=== PATIENT | female | born 1950 | race Hispanic/Latino ===

== ENCOUNTER → 2017-12-08 | Outpatient (CLI) | payer MEDICARE ==
[~2017-12-08] MED LIST: ADAL40PE3 SQ; ASPI-1181 PO; ATOR40TA71 PO; BENZONATE PO; CLON1TAB5 SL; CLOP75TA32 PO; DOXEPIN PO; FLUO20TA29 PO; FLUTICASONE PROP NASAL; FURO20TA4 PO; GABA-531 PO; GLUCOSE TAB CHEW; INSU100I21 SQ; INSU100I3 SQ; IRON PO; ISOS30TA6 PO; LOSA50TA37 PO; METF500T6 PO; METO-408 PO; NITR0.4T50 SL; POTA10CA44 PO; PROVENTIL HFA PUFF; RANO500T3 PO; SUVO10TA PO
== END | disposition home or self-care (01) ==
LOC: SHCH 13:37
PROVIDERS: ATTEND Internal Medicine Cardiovascular Disease
DX: I25.119 Atherosclerotic heart disease of native coronary artery with unspecified angina pectoris (principal); I34.0 Nonrheumatic mitral (valve) insufficiency
CPT/HCPCS: 93306

== ENCOUNTER → 2017-12-13 | Outpatient (CLI) | payer MEDICARE ==
[~2017-12-13] MED LIST changes: +REGADENOSON 0.4 MG/5 ML PF SYG IVP SCH
== END | disposition home or self-care (01) ==
LOC: SHCH 08:16
PROVIDERS: ATTEND Internal Medicine Cardiovascular Disease
DX: I25.119 Atherosclerotic heart disease of native coronary artery with unspecified angina pectoris (principal)
CPT/HCPCS: 78452; 93017; 96374; A9500 ×2; J2785

== ENCOUNTER 2018-01-25 06:00 | Observation (INO) | payer MEDICARE ==
[2018-01-21 10:15] VITALS: BP 162/87
[2018-01-21 10:34] LABS: BASOPHILS % (AUTO) 1.3 % (0.0-5.0); EOSINOPHILS % (AUTO) 1.1 % (0.0-8.0); HEMATOCRIT 34.9 % (36-48); LYMPHOCYTES % (AUTO) 35.2 % (21.0-51.0); MEAN CORPUSCULAR HEMOGLOBIN 29.7 pg (27.0-33.0); MEAN CORPUSCULAR HGB CONC 33.9 g/dL (32.0-36.0); MEAN CORPUSCULAR VOLUME 87.5 fL (79-99); MONOCYTES % (AUTO) 6.7 % (3.0-13.0); NEUTROPHILS % (AUTO) 55.7 % (40.0-77.0); PLATELET COUNT (AUTO) 407 K/uL (130-400); RED BLOOD CELL COUNT(AUTO) 3.99 MIL/uL (4.00-5.50); RED CELL DISTRIBUTION WIDTH 15.5 % (11.0-15.5); WHITE BLOOD COUNT (AUTO) 5.7 K/uL (4.8-10.8)
[2018-01-21 10:42] LABS: APPEARANCE,URINE Cloudy (CLEAR); BILIRUBIN,URINE Negative (NEGATIVE); COLOR,URINE Yellow (YELLOW); GLUCOSE, URINE (UA) Negative (NEGATIVE); KETONES,URINE Negative (NEGATIVE); LEUKOCYTE ESTERASE ,URINE Small (NEGATIVE); NITRATE,URINE Negative (NEGATIVE); OCCULT BLOOD,URINE Negative (NEGATIVE); PROTEIN,URINE Negative (NEGATIVE)
[2018-01-21 10:43] LABS: CREATININE 0.9 mg/dL (0.5-1.5); POTASSIUM 4.4 mmol/L (3.5-5.1)
[2018-01-21 10:53] LABS: INR 0.93 (0.85-1.15); PARTIAL THROMBOPLASTIN TIME 27.1 SEC (26.3-35.5); PROTHROMBIN TIME 9.8 SEC (9.6-11.6)
[2018-01-21 10:54] LABS: RBC,URINE 0-1 /HPF (0-1)
[2018-01-21 10:55] LABS: BACTERIA,URINE Few /HPF (None Seen); WBC,URINE 0-1 /HPF (0-1)
[2018-01-25] VITALS (11 sets, daily range): BP systolic 109–161; BP diastolic 64–97
[~2018-01-25] VITALS: Ht 162.6 cm; Wt 103.8 kg
[~2018-01-25 06:00] MED LIST changes: -REGADENOSON 0.4 MG/5 ML PF SYG IVP SCH; +SODIUM CHLORIDE 0.9% 500ML 500 ML IV SCH
[2018-01-25] MEDS ORDERED: SODIUM CHLORIDE 0.9% 1000ML 1,000 ML IV ONE (07:52)
[2018-01-25] MEDS ORDERED: HEPARIN SODIUM 1000UNIT/ML 10ML VIAL ONE (10:44)
[2018-01-25] MEDS ORDERED: IOHEXOL-350 50ML VIAL IV ONE ×2 (10:44→12:33)
[2018-01-25] MEDS ORDERED: NITROGLYCERIN 5 MG/ML 10 ML VIAL IV ONE (10:44)
[2018-01-25] MEDS ORDERED: IOHEXOL 350 MG/ML 100ML INFUS..BTL IV ONE ×2 (10:44→11:49)
[2018-01-25] MEDS ORDERED: LIDOCAINE HCL-MPF 2% 5ML VIAL ONE (10:46)
[2018-01-25] MEDS ORDERED: MIDAZOLAM HCL 1 MG/ML 2ML VIAL ONE ×3 (11:06→11:56)
[2018-01-25] MEDS ORDERED: MEPERIDINE-PF 25 MG/ML SYG ONE ×3 (11:06→11:56)
[2018-01-25] MEDS ORDERED: ALBUTEROL SULFATE 0.083% 2.5 MG/3 ML INH IH SCH (12:00)
[2018-01-25] MEDS: SODIUM CHLORIDE 0.9% 1000ML 1,000 ML IV SCH ×2 (12:58→22:58)
[2018-01-25] MEDS ORDERED: NITROGLYCERIN 0.4 MG SL TAB SL PRN (13:00)
[2018-01-25] MEDS ORDERED: BENZONATATE 100 MG CAPSULE PO PRN (13:00)
[2018-01-25] MEDS ORDERED: DEXTROSE 50%-WATER 50 ML DISP.SYRIN IV PRN (13:00)
[2018-01-25] MEDS ORDERED: CLOPIDOGREL BISULFATE 75 MG TAB ONE (13:08)
[2018-01-25] MEDS ORDERED: ASPIRIN 81MG TAB.CHEW ONE (13:08)
[2018-01-25] MEDS: ACETAMINOPHEN-CODEINE 300/30MG TAB PO PRN (15:35)
[2018-01-25] MEDS ORDERED: ATORVASTATIN CALCIUM 40 MG TABLET PO SCH (21:00)
[2018-01-25] MEDS ORDERED: SUVOREXANT 10 MG PO SCH (21:00)
[2018-01-25] MEDS: INSULIN HUMULIN R 100 UNIT/ML 3ML SQ SCH (21:00)
[2018-01-25] MEDS ORDERED: INSULIN GLARGINE 100 UNITS/ML 10 ML VIAL SQ SCH (21:00)
[2018-01-25] MEDS: GABAPENTIN 300 MG CAPSULE PO SCH (21:21)
[2018-01-25] MEDS: METOPROLOL TARTRATE 25 MG TAB PO SCH (21:22)
[2018-01-25] MEDS: CLONAZEPAM 1 MG TABLET PO PRN (22:24)
[2018-01-26] MEDS: ACETAMINOPHEN-CODEINE 300/30MG TAB PO PRN ×2 (01:15→10:00)
[2018-01-26 03:57] VITALS: BP 153/87
[2018-01-26 04:28] LABS: HEMATOCRIT 32.9 % (36-48); MEAN CORPUSCULAR HEMOGLOBIN 31.1 pg (27.0-33.0); MEAN CORPUSCULAR HGB CONC 35.2 g/dL (32.0-36.0); MEAN CORPUSCULAR VOLUME 88.4 fL (79-99); PLATELET COUNT (AUTO) 353 K/uL (130-400); RED BLOOD CELL COUNT(AUTO) 3.72 MIL/uL (4.00-5.50); RED CELL DISTRIBUTION WIDTH 15.5 % (11.0-15.5); WHITE BLOOD COUNT (AUTO) 7.7 K/uL (4.8-10.8)
[2018-01-26 05:10] LABS: CREATININE 0.9 mg/dL (0.5-1.5); POTASSIUM 4.7 mmol/L (3.5-5.1)
[2018-01-26 07:00] VITALS: BP 175/71
[2018-01-26] MEDS: INSULIN LISPRO 100 UNIT/ML 3ML SQ SCH ×2 (07:30→11:30)
[2018-01-26] MEDS: INSULIN HUMULIN R 100 UNIT/ML 3ML SQ SCH ×2 (07:30→11:30)
[2018-01-26] MEDS ORDERED: ASPIRIN 81 MG EC TAB PO SCH (09:00)
[2018-01-26] MEDS ORDERED: FLUTICASONE PROPIONATE 50MCG/SPRAY 16 GM BOTTLE EN SCH (09:00)
[2018-01-26] MEDS ORDERED: RANOLAZINE 500 MG TAB.SR.12H PO SCH (09:00)
[2018-01-26] MEDS ORDERED: ISOSORBIDE MONO 30MG TAB SR PO SCH (09:00)
[2018-01-26] MEDS ORDERED: POTASSIUM CHLORIDE 10 MEQ/TAB.SA PO SCH (09:00)
[2018-01-26] MEDS ORDERED: FUROSEMIDE 20 MG TABLET PO SCH (09:00)
[2018-01-26] MEDS ORDERED: FLUOXETINE HCL 20 MG CAPSULE PO SCH (09:00)
[2018-01-26] MEDS ORDERED: CLOPIDOGREL BISULFATE 75 MG TAB PO SCH (09:00)
[2018-01-26] MEDS ORDERED: LOSARTAN 50 MG TABLET PO SCH (09:00)
[2018-01-26] MEDS: METOPROLOL TARTRATE 25 MG TAB PO SCH (09:50)
[2018-01-26] MEDS: GABAPENTIN 300 MG CAPSULE PO SCH (09:52)
[2018-01-26 11:00] VITALS: BP 119/57
[2018-01-26] MEDS: CLONAZEPAM 1 MG TABLET PO PRN (12:17)
[2018-02-08] MEDS ORDERED: ADALIMUMAB 40 MG SQ SCH (09:00)
== END 2018-01-26 13:10 | disposition home or self-care (01) ==
LOC: DAH 06:00 → DAHIP 06:01 → DAH 06:01 → 2BH 13:30 → 2AH 20:20
PROVIDERS: ADMIT Internal Medicine Cardiovascular Disease; ATTEND Internal Medicine Cardiovascular Disease
DX: I25.798 Atherosclerosis of other coronary artery bypass graft(s) with other forms of angina pectoris (principal); Z79.899 Other long term (current) drug therapy; Z95.1 Presence of aortocoronary bypass graft; Z90.49 Acquired absence of other specified parts of digestive tract; Z98.890 Other specified postprocedural states; Z98.84 Bariatric surgery status; I10 Essential (primary) hypertension; E78.5 Hyperlipidemia, unspecified; E11.9 Type 2 diabetes mellitus without complications; Z86.73 Personal history of transient ischemic attack (TIA), and cerebral infarction without residual deficits; F32.9 Major depressive disorder, single episode, unspecified; G47.33 Obstructive sleep apnea (adult) (pediatric); Z82.49 Family history of ischemic heart disease and other diseases of the circulatory system; L40.9 Psoriasis, unspecified; Z68.41 Body mass index [BMI] 40.0-44.9, adult
CPT/HCPCS: 36415 ×3; 71045; 80048 ×2; 80061; 81001; 82948 ×7; 85025; 85027; 85347; 85610; 85730; 92920; 93005; 93459; A4606; C1725 ×2; C1760; C1769 ×2; C1874 ×2; C1887 ×2; C1894 ×2; C9604; G0378 ×31; J1644 ×3; J1815; J2175 ×3; J2250 ×3; J3490 ×2; J7030; Q9965 ×2; Q9967 ×4; 99156; 99157

== ENCOUNTER → 2018-08-22 | Outpatient (CLI) | payer MEDICARE ==
[~2018-08-22] MED LIST changes: -BENZONATE PO; -CLON1TAB5 SL; -DOXEPIN PO; -FURO20TA4 PO; -GABA-531 PO; -GLUCOSE TAB CHEW; -INSU100I3 SQ; -ISOS30TA6 PO; -LOSA50TA37 PO; +METF-444 PO; -METF500T6 PO; +METH750T3 PO; -METO-408 PO; +OMEP20CA10 PO; -POTA10CA44 PO; -RANO500T3 PO; +REGADENOSON 0.4 MG/5 ML PF SYG IVP SCH; -SODIUM CHLORIDE 0.9% 500ML 500 ML IV SCH; -SUVO10TA PO
== END | disposition home or self-care (01) ==
LOC: SHCH 07:44
PROVIDERS: ATTEND Internal Medicine Cardiovascular Disease
DX: I25.709 Atherosclerosis of coronary artery bypass graft(s), unspecified, with unspecified angina pectoris (principal)
CPT/HCPCS: 78452; 93017; 96374; A9500 ×2; J2785

== ENCOUNTER 2018-09-15 05:46 | Day surgery (SDC) | payer MEDICARE ==
[2018-09-13 13:08] LABS: APPEARANCE,URINE Turbid (CLEAR); BASOPHILS % (AUTO) 0.7 % (0.0-5.0); BILIRUBIN,URINE Small (NEGATIVE); COLOR,URINE Dark Yellow (YELLOW); EOSINOPHILS % (AUTO) 1.3 % (0.0-8.0); GLUCOSE, URINE (UA) Negative (NEGATIVE); HEMATOCRIT 38.5 % (36-48); KETONES,URINE Trace mg/dL (NEGATIVE); LEUKOCYTE ESTERASE ,URINE Moderate (NEGATIVE); LYMPHOCYTES % (AUTO) 42.4 % (21.0-51.0); MEAN CORPUSCULAR HEMOGLOBIN 30.3 pg (27.0-33.0); MEAN CORPUSCULAR HGB CONC 33.1 g/dL (32.0-36.0); MEAN CORPUSCULAR VOLUME 91.7 fL (79-99); MONOCYTES % (AUTO) 8.7 % (3.0-13.0); NEUTROPHILS % (AUTO) 46.9 % (40.0-77.0); NITRATE,URINE Negative (NEGATIVE); OCCULT BLOOD,URINE Small (NEGATIVE); PH,URINE 5.5 (5.0-8.0); PLATELET COUNT (AUTO) 281 K/uL (130-400); PROTEIN,URINE Trace (NEGATIVE); RED BLOOD CELL COUNT(AUTO) 4.19 MIL/uL (4.00-5.50); RED CELL DISTRIBUTION WIDTH 15.7 % (11.0-15.5); WHITE BLOOD COUNT (AUTO) 5.4 K/uL (4.8-10.8)
[2018-09-13 13:13] VITALS: BP 166/68
[2018-09-13 13:14] LABS: BACTERIA,URINE Few /HPF (None Seen); MUCUS,URINE Rare LPF (None Seen); SQUAMOUS EPITHELIAL CELL,UR Moderate /HPF (0-2)
[2018-09-13 13:16] LABS: CALCIUM OXALATE CRYSTALS,UR Many /LPF (None Seen)
[2018-09-13 13:19] LABS: CREATININE 0.9 mg/dL (0.5-1.5); POTASSIUM 4.1 mmol/L (3.5-5.1)
[2018-09-13 13:25] LABS: INR 0.94 (0.85-1.15); PARTIAL THROMBOPLASTIN TIME 29.6 SEC (26.3-35.5); PROTHROMBIN TIME 9.9 SEC (9.6-11.6)
[~2018-09-15] VITALS: Ht 161.3 cm; Wt 105.5 kg
[~2018-09-15 05:46] MED LIST changes: +CALC-190 PO; +CHOL200074 PO; +CLON1TAB12 PO; -FLUO20TA29 PO; -FLUTICASONE PROP NASAL; +FURO20TA4 PO; -INSU100I21 SQ; +LOSA50TA64 PO; +MACR100 PO; -METH750T3 PO; +METO-408 PO; +MULT-492 PO; -NITR0.4T50 SL; -OMEP20CA10 PO; +PANT40TA PO; +POTA-9 PO; -PROVENTIL HFA PUFF; -REGADENOSON 0.4 MG/5 ML PF SYG IVP SCH; +SUVO10TA PO; +[UNRECOGNIZED DRUG - OTHER] PO
[2018-09-15 06:09] VITALS: BP 144/77
[2018-09-15] MEDS ORDERED: SODIUM CHLORIDE 0.9% 1000ML 1,000 ML IV ONE (06:20)
--- NOTE | 2018-09-15 07:00 | NUR ---
IV in attempt. As I was starting IV, Dr. Goff came in to see pt. Dr. Goff said to discontinue IV process, as procedure was canceled due to evidence of UTI. Pt instructed to follow-up with her PCP, to monitor for signs of UTI, and to inform them of the situation, as urine sample still showing evidence of UTI despite antibiotics. Pt instructed to follow-up with culture results as well.
[2018-09-15] MEDS ORDERED: MEPERIDINE-PF 25 MG/ML SYG ONE (07:13)
[2018-09-15] MEDS ORDERED: IOHEXOL 350 MG/ML 100ML INFUS..BTL IV ONE (07:13)
[2018-09-15] MEDS ORDERED: NITROGLYCERIN 5 MG/ML 10 ML VIAL IV ONE (07:13)
[2018-09-15] MEDS ORDERED: HEPARIN SODIUM 1000UNIT/ML 10ML VIAL ONE (07:13)
[2018-09-15] MEDS ORDERED: SODIUM BICARB 50MEQ 50ML VIAL ONE (07:13)
[2018-09-15] MEDS ORDERED: LIDOCAINE HCL 2% 20ML ONE (07:13)
[2018-09-15] MEDS ORDERED: MIDAZOLAM HCL 1 MG/ML 2ML VIAL ONE (07:13)
--- NOTE | 2018-09-15 07:25 | NUR ---
Pt dressed and ready to go home. Pt informed that she should get a call to reschedule procedure and to call Dr. Goff's office if she does not hear from anyone.
[2018-09-15] MEDS ORDERED: SODIUM CHLORIDE 0.9% 1000ML 1,000 ML IV SCH (08:00)
== END 2018-09-15 07:25 | disposition home or self-care (01) ==
LOC: DAH 05:46
PROVIDERS: ATTEND Internal Medicine Cardiovascular Disease
DX: I25.10 Atherosclerotic heart disease of native coronary artery without angina pectoris (principal); Z53.9 Procedure and treatment not carried out, unspecified reason
CPT/HCPCS: 36415; 71045; 80048; 81001; 82948; 85025; 85610; 85730; 93005; A4606; J7030; J1644; J2175; J2250; J3490; Q9967

== ENCOUNTER 2018-11-08 07:12 | Outpatient (CLI) | payer MEDICARE ==
[2018-11-04 10:41] VITALS: BP 161/80
[2018-11-04 10:50] LABS: BASOPHILS % (AUTO) 1.1 % (0.0-5.0); EOSINOPHILS % (AUTO) 0.9 % (0.0-8.0); HEMATOCRIT 37.1 % (36-48); LYMPHOCYTES % (AUTO) 41.7 % (21.0-51.0); MEAN CORPUSCULAR HEMOGLOBIN 31.2 pg (27.0-33.0); MEAN CORPUSCULAR HGB CONC 33.6 g/dL (32.0-36.0); MEAN CORPUSCULAR VOLUME 92.7 fL (79-99); MONOCYTES % (AUTO) 8.5 % (3.0-13.0); NEUTROPHILS % (AUTO) 47.8 % (40.0-77.0); PLATELET COUNT (AUTO) 304 K/uL (130-400); RED CELL DISTRIBUTION WIDTH 13.9 % (11.0-15.5); WHITE BLOOD COUNT (AUTO) 6.5 K/uL (4.8-10.8)
[2018-11-04 10:52] LABS: APPEARANCE,URINE Clear (CLEAR); BILIRUBIN,URINE Negative (NEGATIVE); COLOR,URINE Yellow (YELLOW); GLUCOSE, URINE (UA) 250 mg/dL (NEGATIVE); KETONES,URINE Negative (NEGATIVE); LEUKOCYTE ESTERASE ,URINE Small (NEGATIVE); NITRATE,URINE Negative (NEGATIVE); OCCULT BLOOD,URINE Small (NEGATIVE); PROTEIN,URINE Negative (NEGATIVE)
[2018-11-04 10:55] LABS: BACTERIA,URINE Rare /HPF (None Seen); RBC,URINE 0-1 /HPF (0-1); SQUAMOUS EPITHELIAL CELL,UR Moderate /HPF (0-2)
[2018-11-04 11:00] LABS: CREATININE 0.9 mg/dL (0.5-1.5); POTASSIUM 4.6 mmol/L (3.5-5.1)
[2018-11-04 11:07] LABS: INR 0.95 (0.85-1.15); PARTIAL THROMBOPLASTIN TIME 27.8 SEC (26.3-35.5)
--- NOTE | 2018-11-07 13:35 | NUR ---
LABS ABNORMAL UA REPORTED TO TONA CRAIN, NO FURTHER ORDERS GIVEN
[~2018-11-08] VITALS: Ht 162.6 cm; Wt 106.0 kg
[~2018-11-08 07:12] MED LIST changes: +ACET-2247 PO; +ALBU6.7H IH; +FLUO20TA29 PO; +FLUT16H NS; +GABA-531 PO; +HYDR-4060 PO; +LORA-705 PO; -LOSA50TA64 PO; -MACR100 PO; -POTA-9 PO
== END 2018-11-08 09:00 ==
LOC: DAH 07:12
PROVIDERS: ATTEND Internal Medicine Cardiovascular Disease
DX: I25.10 Atherosclerotic heart disease of native coronary artery without angina pectoris (principal); Z53.9 Procedure and treatment not carried out, unspecified reason
CPT/HCPCS: 36415; 71045; 80048; 81001; 85025; 85610; 85730; 93005

== ENCOUNTER 2019-03-16 11:52 | Emergency (ER) | payer MEDICARE ==
[2019-03-16] MEDS ORDERED: HYDROCODONE/ACETAMINOPHEN 10/325 MG TAB ONE (12:25)
== END 2019-03-16 14:48 | disposition home or self-care (01) ==
LOC: EDH 11:52
DX: S80.02XA Contusion of left knee, initial encounter (principal); S09.8XXA Other specified injuries of head, initial encounter; I25.10 Atherosclerotic heart disease of native coronary artery without angina pectoris; I11.0 Hypertensive heart disease with heart failure; I50.9 Heart failure, unspecified; E78.5 Hyperlipidemia, unspecified; E11.9 Type 2 diabetes mellitus without complications; Z88.1 Allergy status to other antibiotic agents; Z88.2 Allergy status to sulfonamides; Z88.7 Allergy status to serum and vaccine; Z91.012 Allergy to eggs; W18.39XA Other fall on same level, initial encounter; Y93.89 Activity, other specified; Y92.89 Other specified places as the place of occurrence of the external cause; Y99.8 Other external cause status
CPT/HCPCS: 70450; 73552

== ENCOUNTER → 2019-08-21 | Outpatient (CLI) | payer OTHER, MEDICARE ==
[~2019-08-21] VITALS: Ht 157.5 cm; Wt 111.1 kg
[~2019-08-21] MED LIST changes: -ALBU6.7H IH; +ALBU6.7H9 IH; +REGADENOSON 0.4 MG/5 ML PF SYG IVP SCH
== END | disposition home or self-care (01) ==
LOC: SHCH 08:08
PROVIDERS: ATTEND Internal Medicine Cardiovascular Disease
DX: I10 Essential (primary) hypertension (principal); R06.00 Dyspnea, unspecified; R07.89 Other chest pain; R51 Headache
CPT/HCPCS: 78452; 93017; 96374; A9500 ×2; J2785

== ENCOUNTER 2019-08-30 15:42 | Emergency (ER) | payer OTHER, MEDICARE ==
[~2019-08-30 15:42] MED LIST changes: +ATOR20TA65 PO; +FLUO40CA49 PO; +LOSA50TA64 PO; +METH750T3 PO; +MONT10TA24 PO; +POTA-9 PO; -REGADENOSON 0.4 MG/5 ML PF SYG IVP SCH; +TYL4 PO; +biotin PO
== END 2019-08-30 17:33 | disposition home or self-care (01) ==
LOC: EDH 15:42
DX: S90.121A Contusion of right lesser toe(s) without damage to nail, initial encounter (principal); I25.10 Atherosclerotic heart disease of native coronary artery without angina pectoris; E11.9 Type 2 diabetes mellitus without complications; E78.5 Hyperlipidemia, unspecified; I10 Essential (primary) hypertension; I50.9 Heart failure, unspecified; Z87.891 Personal history of nicotine dependence; Z88.2 Allergy status to sulfonamides; Z91.012 Allergy to eggs; Z88.7 Allergy status to serum and vaccine; X58.XXXA Exposure to other specified factors, initial encounter; Y93.89 Activity, other specified; Y92.89 Other specified places as the place of occurrence of the external cause; Y99.8 Other external cause status
CPT/HCPCS: 73630

== ENCOUNTER 2019-09-01 07:40 | Day surgery (SDC) | payer OTHER, MEDICARE ==
[2019-08-30 13:44] LABS: EOSINOPHILS % (AUTO) 1.3 % (0.0-8.0); HEMATOCRIT 38.1 % (36-48); LYMPHOCYTES % (AUTO) 29.8 % (21.0-51.0); MEAN CORPUSCULAR HEMOGLOBIN 29.8 pg (27.0-33.0); MEAN CORPUSCULAR VOLUME 93.2 fL (79-99); MONOCYTES % (AUTO) 9.5 % (3.0-13.0); NEUTROPHILS % (AUTO) 58.1 % (40.0-77.0); PLATELET COUNT (AUTO) 292 K/uL (130-400); RED BLOOD CELL COUNT(AUTO) 4.09 MIL/uL (4.00-5.50); RED CELL DISTRIBUTION WIDTH 13.6 % (11.0-15.5); WHITE BLOOD COUNT (AUTO) 6.2 K/uL (4.8-10.8)
[2019-08-30 13:48] LABS: APPEARANCE,URINE Cloudy (CLEAR); BILIRUBIN,URINE Negative (NEGATIVE); COLOR,URINE Yellow (YELLOW); GLUCOSE, URINE (UA) TRACE mg/dL (NEGATIVE); KETONES,URINE Negative (NEGATIVE); LEUKOCYTE ESTERASE ,URINE Moderate (NEGATIVE); NITRATE,URINE Positive (NEGATIVE); OCCULT BLOOD,URINE Moderate (NEGATIVE); PH,URINE 5.5 (5.0-8.0); PROTEIN,URINE Negative (NEGATIVE)
[2019-08-30 13:50] LABS: CREATININE 0.8 mg/dL (0.5-1.5); POTASSIUM 3.8 mmol/L (3.5-5.1)
[2019-08-30 13:54] LABS: INR 0.96 (0.85-1.15); PROTHROMBIN TIME 10.1 SEC (9.6-11.6)
[2019-08-30 13:58] LABS: BACTERIA,URINE Many /HPF (None Seen); RBC,URINE 0-1 /HPF (0-1)
[2019-08-30 13:59] LABS: SQUAMOUS EPITHELIAL CELL,UR Few /HPF (0-2)
[2019-08-30 14:12] VITALS: BP 187/90
--- NOTE | 2019-08-31 16:23 | NUR ---
UA INFORMED PARAS KENDALL OF ABNORMAL UA. ORDERS RECEIVED TO REPEAT UA IN AM AND SEND FOR CULTURE.
[~2019-09-01] VITALS: Ht 160 cm; Wt 109.3 kg
[2019-09-01] VITALS (10 sets, daily range): BP systolic 147–193; BP diastolic 54–86
[~2019-09-01 07:40] MED LIST changes: -ACET-2247 PO; -ADAL40PE3 SQ; -ATOR40TA71 PO; -CLON1TAB12 PO; -FLUO20TA29 PO; -FLUT16H NS; -HYDR-4060 PO; -IRON PO; -LORA-705 PO; -MONT10TA24 PO; +MONT10TA26 PO; -MULT-492 PO
--- NOTE | 2019-09-01 07:55 | NUR ---
PROCEDURE PT HERE FOR PROCEDURE. DENIES ANY SOB, PAIN. PT STATES SHE CANT URINATE FOR UA. INSTRUCTED TO TRY.
[2019-09-01] MEDS ORDERED: SODIUM CHLORIDE 0.9% 1000ML 1,000 ML IV SCH ×2 (08:00→16:18)
--- NOTE | 2019-09-01 09:45 | NUR ---
UA INFORMED DR. BRANCH OF STATING CANT URINATE FOR UA. ORDERS RECEIVED TO HAVE PT TRY TO COLLECT URINE.
[2019-09-01 10:48] LABS: APPEARANCE,URINE Cloudy (CLEAR); BILIRUBIN,URINE Negative (NEGATIVE); COLOR,URINE Yellow (YELLOW); GLUCOSE, URINE (UA) Negative (NEGATIVE); KETONES,URINE Negative (NEGATIVE); LEUKOCYTE ESTERASE ,URINE Small (NEGATIVE); NITRATE,URINE Negative (NEGATIVE); OCCULT BLOOD,URINE Moderate (NEGATIVE); PROTEIN,URINE Negative (NEGATIVE)
[2019-09-01 11:30] LABS: BACTERIA,URINE Many /HPF (None Seen)
--- NOTE | 2019-09-01 13:30 | NUR ---
REPORT REPORT RECEIVED FROM THERESE HOLLIS RN. PT IN BED, NOT ON ANY APPARENT DISTRESS. SON AT BEDSIDE.
[2019-09-01] MEDS ORDERED: HEPARIN SODIUM 1000UNIT/ML 10ML VIAL ONE ×2 (14:55→15:15)
[2019-09-01] MEDS ORDERED: SODIUM BICARB 50MEQ 50ML VIAL ONE (14:55)
[2019-09-01] MEDS ORDERED: IOHEXOL-350 50ML VIAL IV ONE (14:55)
[2019-09-01] MEDS ORDERED: LIDOCAINE HCL 2% 20ML ONE (14:55)
[2019-09-01] MEDS ORDERED: IOHEXOL 350 MG/ML 100ML INFUS..BTL IV ONE (14:55)
[2019-09-01] MEDS ORDERED: NICARDIPINE HCL 25 MG/10 ML ML IV ONE (14:59)
[2019-09-01] MEDS ORDERED: NITROGLYCERIN 1 MG/VIAL VIAL IV ONE (14:59)
[2019-09-01] MEDS ORDERED: MIDAZOLAM HCL 1 MG/ML 2ML VIAL ONE ×3 (15:11→15:22)
[2019-09-01] MEDS ORDERED: MEPERIDINE-PF 25 MG/ML SYG ONE ×3 (15:11→15:21)
[2019-09-01] MEDS ORDERED: DEXTROSE 50%-WATER 50 ML DISP.SYRIN IV PRN (16:30)
[2019-09-01] MEDS ORDERED: GLUCAGON 1MG KIT 1 MG ML IM PRN (16:30)
[2019-09-01] MEDS ORDERED: INSULIN HUMULIN R 100 UNIT/ML 3ML SQ SCH (16:30)
[2019-09-01] MEDS ORDERED: HYDRALAZINE HCL 20 MG/ML VIAL ONE (17:35)
== END 2019-09-01 21:20 | disposition home or self-care (01) ==
LOC: DAH 07:40
PROVIDERS: ATTEND Internal Medicine Cardiovascular Disease
DX: I25.10 Atherosclerotic heart disease of native coronary artery without angina pectoris (principal); I10 Essential (primary) hypertension; E78.5 Hyperlipidemia, unspecified; E11.40 Type 2 diabetes mellitus with diabetic neuropathy, unspecified; F32.9 Major depressive disorder, single episode, unspecified; G47.33 Obstructive sleep apnea (adult) (pediatric); F41.9 Anxiety disorder, unspecified; M19.90 Unspecified osteoarthritis, unspecified site; Z88.1 Allergy status to other antibiotic agents; Z88.2 Allergy status to sulfonamides; Z88.8 Allergy status to other drugs, medicaments and biological substances; Z98.890 Other specified postprocedural states; Z90.49 Acquired absence of other specified parts of digestive tract; Z79.84 Long term (current) use of oral hypoglycemic drugs; Z79.01 Long term (current) use of anticoagulants; Z79.899 Other long term (current) drug therapy; Z79.82 Long term (current) use of aspirin; Z86.73 Personal history of transient ischemic attack (TIA), and cerebral infarction without residual deficits; Z95.1 Presence of aortocoronary bypass graft; Z82.49 Family history of ischemic heart disease and other diseases of the circulatory system; Z83.3 Family history of diabetes mellitus; Z82.3 Family history of stroke
CPT/HCPCS: 36415; 71045; 80048; 81001 ×2; 82948 ×2; 85025; 85610; 85730; 87077; 87088; 87186; 93005; 93459; A4215; A4216; A4221; A4222; A4223 ×3; A4606; A4663; C1769 ×2; C1894; J0360; J1644 ×2; J2175 ×3; J2250 ×3; J3490 ×4; Q9965 ×2; Q9967 ×2; 99156; 99157

== ENCOUNTER → 2022-02-06 | Outpatient (CLI) | payer MEDICARE ==
[~2022-02-06] MED LIST changes: -ASPI-1181 PO; +ASPI-1443 PO; +METH-812 PO; -METH750T3 PO; +MONT-39 PO; -MONT10TA26 PO; +POTA-10 PO; -POTA-9 PO; +REGADENOSON 0.4 MG/5 ML PF SYG IVP SCH
== END | disposition home or self-care (01) ==
LOC: SHCH 07:37
PROVIDERS: ATTEND Internal Medicine Cardiovascular Disease
DX: I10 Essential (primary) hypertension (principal); Z95.5 Presence of coronary angioplasty implant and graft; E78.5 Hyperlipidemia, unspecified; E11.9 Type 2 diabetes mellitus without complications; Z95.1 Presence of aortocoronary bypass graft
CPT/HCPCS: 78452; 93017; 96374; A9500 ×2; J2785

== ENCOUNTER → 2023-11-05 | Outpatient (CLI) | payer OTHER, MEDICARE ==
[~2023-11-05] MED LIST changes: +ALBU6.7H14 IH; -ALBU6.7H9 IH; -POTA-10 PO; +POTA-200 PO; -REGADENOSON 0.4 MG/5 ML PF SYG IVP SCH
[2023-11-05 12:45] LABS: ALBUMIN 3.5 g/dL (3.5-5.0); BILIRUBIN,TOTAL 0.3 mg/dL (0.2-1.0); CREATININE 0.9 mg/dL (0.5-1.0); MAGNESIUM 2.4 mg/dL (1.80-2.40); POTASSIUM 4.7 mmol/L (3.5-5.1); TOTAL PROTEIN, SERUM 6.8 g/dL (6.0-8.3)
== END | disposition home or self-care (01) ==
LOC: LAB 11:01
PROVIDERS: ATTEND Physician Assistant
DX: I10 Essential (primary) hypertension (principal); R07.9 Chest pain, unspecified
CPT/HCPCS: 36415; 80053; 83735; 83880

== ENCOUNTER → 2023-12-17 | Outpatient (CLI) | payer OTHER, MEDICARE | END | disposition home or self-care (01) | LOC: SHCH 07:38 | PROVIDERS: ATTEND Internal Medicine Cardiovascular Disease | DX: I08.8 Other rheumatic multiple valve diseases (principal); E11.9 Type 2 diabetes mellitus without complications; I11.9 Hypertensive heart disease without heart failure; E78.5 Hyperlipidemia, unspecified; Z95.1 Presence of aortocoronary bypass graft | CPT/HCPCS: 93306 ==

== ENCOUNTER → 2024-05-25 | Outpatient (CLI) | payer MEDICARE ==
[~2024-05-25] MED LIST changes: -ALBU6.7H14 IH; +ALBU90AE3 IH; +ASPI-1005 PO; -ASPI-1443 PO; -CALC-190 PO; -CHOL200074 PO; +CLON1TAB23 PO; +COLE1TAB2 PO; +FERR-82 PO; +FOLI1 PO; -METH-812 PO; +METH2.5T6 PO; +MIRT-22 PO; -MONT-39 PO; +ONDA-104 PO; +PANT40GR PO; -PANT40TA PO; +SACU1TAB PO; -SUVO10TA PO; -TYL4 PO; +VORT10TA PO; -[UNRECOGNIZED DRUG - OTHER] PO; -biotin PO
[2024-05-25 16:36] LABS: CREATININE 1.1 mg/dL (0.5-1.0); POTASSIUM 4.5 mmol/L (3.5-5.1)
== END | disposition home or self-care (01) ==
LOC: LAB 10:00
PROVIDERS: ATTEND Internal Medicine Cardiovascular Disease
DX: I10 Essential (primary) hypertension (principal)
CPT/HCPCS: 36415; 80048

== ENCOUNTER → 2024-05-31 | Outpatient (CLI) | payer MEDICARE ==
[~2024-05-31] MED LIST changes: +IOHEXOL 350 MG/ML 100ML INFUS..BTL IV ONE
== END | disposition home or self-care (01) ==
LOC: RAH 09:03
PROVIDERS: ATTEND Internal Medicine Cardiovascular Disease
DX: I25.119 Atherosclerotic heart disease of native coronary artery with unspecified angina pectoris (principal); Z95.1 Presence of aortocoronary bypass graft
CPT/HCPCS: 75574; Q9967